=== PATIENT | female | born 1990 | race Caucasian/White ===

== ENCOUNTER 2020-01-27 01:53 | Emergency (ER) | payer OTHER ==
[~2020-01-27] VITALS: Ht 160 cm; Wt 56.7 kg
[2020-01-27 01:58] VITALS: Ht 160 cm; Wt 56.7 kg
[2020-01-27 03:04] VITALS: BP 125/86
== END 2020-01-27 02:56 | disposition home or self-care (01) ==
LOC: ED 01:53
DX: L50.9 Urticaria, unspecified (principal)
CPT/HCPCS: J1200; J7512